=== PATIENT | female | born 1970 | race Caucasian/White ===

== ENCOUNTER 2016-05-22 11:21 | Emergency (ER) | payer SELFPAY ==
[2016-05-22] MEDS ORDERED: KETOROLAC TROMETHAMINE 30 MG/ML VIAL IV ONE (11:26)
[2016-05-22] MEDS ORDERED: ONDANSETRON HCL/PF 2 MG/ML VIAL IV ONE (11:27)
[2016-05-22] MEDS ORDERED: NORMAL SALINE 1,000 ML IV ONE (11:36)
--- NOTE | 2016-05-22 11:36 | ERNOTE ---
Abdominal HPI - Narrative Date of Service: 05/22/16 - General Chief Complaint: Abdominal Pain Time Seen by Provider: 05/22/16 11:26 Source: patient Exam Limitations: no limitations - Immun/Allergies/Home Medications Immunizatons: IMMUNIZATION HX Immunizations Up to Date Yes History of Influenza Vaccine No Allergies/Adverse Reactions: Allergies No Known Allergies Allergy (Verified 05/22/16 11:40) Home Medications: HOME MEDICATIONS HYDROcodone/ACETAMINOPHEN [Chardon 5-325] 1 tab PO Q6H PRN 05/22/16 [Last Taken Unknown] Naproxen [Naprosyn] 500 mg PO BID PRN 05/22/16 [Last Taken Unknown] predniSONE [Prednisone] 10 mg PO DAILY 05/22/16 [Last Taken Unknown] - History of Present Illness Narrative: Pt. comes in by EMS with c/o RUQ abd pain that radiates to her back for 10 hours and is accompanied by 1 episode of vomiting. Pt. denies any SOB, CP, nausea, diarrhea, constipation, fever, headache, alleviating factors, aggravating factors, or prehospital treatment. Pt. has hx of gallbladder removal but still has her appendix. Review of Systems - Review of Systems Constitutional: Present: no symptoms reported. Absent: recent illness, fever, chills, weakness, fatigue EYE: Present: no symptoms reported ENT: Present: no symptoms reported Respiratory: Present: no symptoms reported. Absent: shortness of breath, cough , wheezing Cardiology: Present: no symptoms reported. Absent: chest pain, palpitations, edema Gastrointestinal/Abdominal: Present: abdominal pain. Absent: nausea, vomiting, diarrhea Genitourinary: Present: no symptoms reported Musculoskeletal: Present: no symptoms reported. Absent: back pain, joint pain Skin: Present: no symptoms reported Neurological: Present: no symptoms reported. Absent: headache, dizziness/light- headedness, tingling, tremors All Other Systems: All systems neg except as marked - Patient's Past Medical History Patient History - Medical: No pertinent hx Patient History - Cancer: No Hx of Cancer Patient History - Surgical Procedures: Cholecystectomy, Gastric Bypass, Hysterectomy - Social History Smoking Status: Never smoker Have you smoked in the past 12 months: No Do you dip or chew tobacco: No Alcohol Use: none Drug Use: none Physical Exam - Physical Exam General Appearance: Present: wd/wn, alert, no apparent distress Eye Exam: Normal inspection: bilateral, PERRL: bilateral, EOMI: bilateral Ears, Nose, Throat: Present: normal ENT inspection, hearing grossly normal Neck: Present: normal inspection, nontender. Absent: lymphadenopathy (R), lymphadenopathy (L) Respiratory: Present: no respiratory distress, normal breath sounds, no accessory muscle use, chest nontender, lungs clear Cardiovascular/Chest: Present: regular rate, rhythm, no murmur, normal peripheral pulses Gastrointestinal/Abdominal: Present: normal bowel sounds, nontender, nondistended, soft, no organomegaly Back Exam: Present: normal inspection, normal range of motion, no CVA tenderness , no vertebral tenderness Extremity Exam: Present: normal inspection, non-tender, no edema, normal range of motion Neurological Exam: Present: alert, oriented, normal mood/affect, no motor/ sensory deficits, 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 Absent: pallor, skin rash ED Progress - Date and Time Seen: Date and Time: 05/22/16 12:[address] Godfrey and he recommends performing abd CT 05/22/16 15:[address] Kellogg and as pt. has hx of gastric bypass pt. needs specialized GI surgeon at [facility] per Dr Kellogg. Discussed with Dr Cannon and she accepts and we would like to air evac pt but due to weather are not able to so will transport the pt per ground. Attempted to find ground transport. [facility] unable so pt is going to be transported by [facility] ([facility] Discussed with Dr Cecilio Macias and he is in agreement with this plan. 05/22/16 15:33 - Results and Orders Patient's Lab Results:: I have reviewed the patient's lab results. - Vital Signs Patient's Vital Signs:: I have reviewed the patient's vital signs. Vital Signs: Vital Signs 05/22/16 11:24 Temperature 35.9 C L Pulse Rate 98 Respiratory 14 Rate Blood Pressure 68/42 O2 Sat by Pulse 98 Oximetry - CT/Ultrasound CT/Ultrasound Narrative: CT with pneumoparitoneum noted most likely from gastric - Progress/Reassessment Chief Complaint: Abdominal Pain Progress:: Unchanged Departure - Departure Clinical Impression: Pneumoperitoneum Gastric perforation Qualifiers: Gastric ulcer chronicity: acute Qualified Code(s): K25.1 - Acute gastric ulcer with perforation [facility] Condition: Critical
[2016-05-22 11:42] LABS: Hematocrit 39.1 % (37.0-47.0); Hemoglobin 12.5 gm/dL (12.5-16.0); Mean Cell Volume 89.7 fl (78-100); Mean Corpuscular Hemoglobin 28.7 pg (27-31); Mean Platelet Volume 9.2 fl (6.0-9.5); Neutrophil % 90.4 % (42-75.0); Platelet Count 256 K/mm3 (150-450); Red Blood Count 4.36 M/mm3 (4.2-5.4); Red Cell Distribution Width 12.4 % (11.5-14.0); White Blood Count 15.5 K/mm3 (4.0-10.5)
[2016-05-22] MEDS ORDERED: ONDANSETRON HCL/PF 2 MG/ML VIAL ONE (11:50)
[2016-05-22] MEDS ORDERED: KETOROLAC TROMETHAMINE 30 MG/ML VIAL ONE (11:51)
[2016-05-22 11:55] LABS: BUN/Creatinine Ratio 13.1 (9.0-21.6)
[2016-05-22 11:56] LABS: Albumin * 3.2 gm/dl (3.4-5.0); Anion Gap 13.7 mmol/L (6.8-13.8); Bilirubin, Total 0.5 mg/dL (0.0-1.1); Ca. Corrected For Albumin 8.7 mg/dL (8.4-10.2); Calcium * 8.4 mg/dL (7.9-10.9); Carbon Dioxide 25.8 mmol/L (24-32.6); Potassium 3.5 mmol/L (3.4-4.6); Total Protein 6.2 gm/dL (6.2-8.2)
[2016-05-22 12:01] LABS: Urine Appearance Slightly Cloudy; Urine Bilirubin Negative (NEGATIVE); Urine Blood Negative /ul (NEGATIVE); Urine Color Dark Yellow; Urine Ketone Negative (NEGATIVE); Urine Protein Negative (NEGATIVE); Urine Specific Gravity 1.025 SP.GR. (1.005-1.010)
[2016-05-22 12:02] LABS: Urine Bacteria 3+; Urine Hyaline Cast 0-5 /LPF; Urine Mucus Few - 1+; Urine Nitrite Negative (NEGATIVE); Urine RBC None Seen /hpf (0-5); Urine Urobilinogen Normal (NORMAL); Urine WBC 0-5 /hpf (0-5); Urine Yeast Few - 1+
[2016-05-22] MEDS ORDERED: SODIUM CHLORIDE IV PRN (12:33)
[2016-05-22] MEDS ORDERED: DIATRIZOATE MEGLU/DIATRIZO SOD 30 ML BTL ONE (12:35)
[2016-05-22] MEDS ORDERED: DIATRIZOATE MEGLU/DIATRIZO SOD 30 ML BTL PO ONE (12:44)
[2016-05-22] MEDS ORDERED: MORPHINE SULFATE 2 MG/ML DISP.SYRIN IV ONE (12:58)
[2016-05-22] MEDS ORDERED: MORPHINE SULFATE 2 MG/ML DISP.SYRIN ONE (13:04)
[2016-05-22] MEDS ORDERED: HYDROmorphone HCL 1 MG/ML DISP.SYRIN IV ONE ×3 (13:52→17:19)
[2016-05-22] MEDS ORDERED: HYDROmorphone HCL 1 MG/ML DISP.SYRIN ONE ×2 (13:57→16:08)
[2016-05-22] MEDS ORDERED: MEROPENEM 1 GM in NORMAL SALINE 100 ML IV ONE (16:30)
[2016-05-22 17:35] VITALS: BP 140/78
== END 2016-05-22 19:57 | disposition short-term general hospital (02) ==
LOC: ER 11:21
DX: K66.8 Other specified disorders of peritoneum (principal); K25.1 Acute gastric ulcer with perforation